=== PATIENT | male | born 1965 | race Two or more races ===

== ENCOUNTER 2019-05-23 20:44 | Emergency (ER) | payer OTHER ==
[~2019-05-23] VITALS: Ht 167.6 cm; Wt 102.3 kg
[2019-05-23 20:46] VITALS: BP 130/77
[2019-05-23] MEDS ORDERED: ATOR10TA9 PO (20:52)
[2019-05-23] MEDS ORDERED: LISI-170 PO (20:52)
== END 2019-05-23 22:17 | disposition home or self-care (01) ==
LOC: ED 22:11
DX: M25.511 Pain in right shoulder (principal); R93.6 Abnormal findings on diagnostic imaging of limbs; X50.9XXA Other and unspecified overexertion or strenuous movements or postures, initial encounter; Y93.89 Activity, other specified; Y92.009 Unspecified place in unspecified non-institutional (private) residence as the place of occurrence of the external cause; Y99.8 Other external cause status
CPT/HCPCS: 99283